=== PATIENT | male | born 1995 | race Caucasian/White ===

== ENCOUNTER 2016-04-02 05:44 | Inpatient (IN) | payer MEDICAID, OTHER ==
[~2016-04-02] VITALS: Ht 167.6 cm; Wt 54.4 kg
[2016-04-02] MEDS ORDERED: LORazepam 1 MG TAB PO PRN (09:15)
[2016-04-02] MEDS ORDERED: MAGNESIUM HYDROXIDE SUSP 30 ML CUP PO PRN (09:15)
[2016-04-02] MEDS ORDERED: ALUMINUM/MAGNESIUM/SIMETH 30 ML CUP PO PRN (09:15)
[2016-04-02] MEDS ORDERED: ACETAMINOPHEN 325 MG TAB PO PRN (09:15)
[2016-04-02] MEDS ORDERED: LORazepam 2 MG/ML VIAL IM PRN (09:15)
[2016-04-02 09:56] VITALS: BP 127/84; PULSE 91; RESP 20; TEMP 97.7; O2SAT 99
--- NOTE | 2016-04-02 10:34 | PD.CONS ---
HPI Service [facility] Consult Requested By Psychiatry team Reason for Consult Medical management leukocytosis WBC 22.4 Primary Care Physician Unknown Diagnoses: History of Present Illness Patient is a 20 year old white male who was transferred into the hospital from [facility] for suicidal ideation. Patient cut his left wrist and was sutured at [facility] prior to transfer. He is now admitted to medical psychiatry unit for further evaluation. Consulted for leukocytosis WBC 22.1 from labs drawn at [facility]. Patient seen today. States is doing well. Denies SI/HI. States this is the second and time in a long while that he attempted to hurt himself. 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 No other medical history or surgical history. Denies pain and discomfort. Denies SOB/ dyspnea. Denies chest pain, palpitations, headaches, dizziness. Denies fevers, chills, n/v/d. Denies dysuria, hematuria. Review of Systems Other Negative except for what is noted on history of present illness. Past Family Social History Allergies: Coded Allergies: No Known Allergies (Unverified , 04/02/16) Past Medical History ? hypertension - has not seen any primary care provider Past Surgical History None Reported Medications None Active Ordered Medications Current Medications Medications (Trade) Dose Ordered Sig/Venu Route Start Time Stop Time Status Last Admin (Ativan) 1 mg Q6H PRN PO 04/02/16 09:15 (Ativan Inj) 1 mg Q6H PRN IM 04/02/16 09:15 (Tylenol) 650 mg Q4H PRN PO 04/02/16 09:15 (Milk Of Magnesia Liq) 30 ml DAILY PRN PO 04/02/16 09:15 (Mag-Al Plus Susp Liq) 30 ml Q6H PRN PO 04/02/16 09:15 (Habitrol 14 Mg Patch.24 Hr) 1 patch DAILY TD 04/02/16 10:45 (Catapres) 0.1 mg Q6H PRN PO 04/02/16 10:45 Miscellaneous Information 1 HS TD 04/02/16 21:00 (Bactroban 2% Oint) 1 applic DAILY TOPICAL 04/02/16 10:45 Family History Heart disease, mother has hypertension Social History Reports alcohol use occasionally, one per weekwhiskey shots and beers, denies binge drinking Reports tobacco use, tobacco, smokes 5 cigarettes per day, also does vapor smoking Denies any illicit drug use Physical Exam Vital Signs Vital Signs Date Time Temp Pulse Resp B/P Pulse Ox O2 Delivery O2 Flow Rate FiO2 04/02/16 09:56 97.7 91 20 127/84 99 Physical Exam GENERAL: This is a thin-appearing, well-developed patient, in no apparent distress. SKIN: Warm and dry. Left wrist dressing CDI. HEAD: Atraumatic. Normocephalic. No temporal or scalp tenderness. EYES: Pupils equal round and reactive. Extraocular motions intact. No scleral icterus. No injection or drainage. ENT: Nose without bleeding. Throat without erythema. Uvula midline. Airway patent. NECK: Trachea midline. No JVD or lymphadenopathy. Supple, nontender, no meningeal signs. CARDIOVASCULAR: Regular rate and rhythm without murmurs, gallops, or rubs. RESPIRATORY: Fair air exchange. Breath sounds equal bilaterally. No wheezes, rales, or rhonchi. GASTROINTESTINAL: Abdomen soft, non-tender, nondistended. No hepato-splenomegaly , or palpable masses. No guarding. MUSCULOSKELETAL: Extremities without clubbing, cyanosis, or edema. No joint tenderness, effusion, or edema noted. No calf tenderness. Negative Homans sign bilaterally. NEUROLOGICAL: Awake and alert. Cranial nerves II through XII intact. Motor and sensory grossly within normal limits. Five out of 5 muscle strength in all muscle groups. Normal speech. Imaging Chest x-ray image reviewed and interpreted by me with no active cardiopulmonary disease Last Impressions Chest X-Ray 04/02/16 1030 Signed Impressions: Service Date/Time: April 10:36 - CONCLUSION: No acute cardiopulmonary disease. Rodrigo Aguirre MD Assessment and Plan Problem List: (1) Alcohol abuse with alcohol-induced mood disorder ICD Code: F10.14 Status: Acute (2) Microcytic anemia ICD Code: D50.9 Status: Acute (3) Leukocytosis ICD Code: D72.829 Status: Acute Assessment and Plan Patient is a 20-year-old male who came in as a transfer from [facility] secondary to self harm. He is now admitted to inpatient med psych unit for further evaluation. Consulted for medical management. Alcohol abuse with alcohol-induced mood disorder, depression - managed by psychiatry team Leukocytosis - WBC 22.1 from [facility] lab draw. They have medically cleared patient to be transferred to be evaluated for inpatient psychiatry unit, note stating unable to find source of infection. - Repeat CBC. WBC 14.6 - Chest x-ray showed no acute cardiopulmonary disease - Possibly reactive - stress related. Asymptomatic. Afebrile. Microcytic anemia - check iron panel, ferritin - Patient thinly appearing, poor appetite has not eaten for 2 days. Enc PO intake - Low iron panel including ferritin. Start iron pills. Check Hemoccult ?HTN - check EKG. - Monitor BP trend her now Thank you for this consultation. We will follow patient with you. Written by Bradley Rodríguez, acting as scribe for Dr. Hidalgo on 04/02/16 at 09:53. The documentation accurately reflects the work performed [id number] by me on at 14:16. Code Status Full code Discussed Condition With Patient, nursing, Bradley Roe Apr 02, 2016 10:34 Gabriel Hidalgo MD Apr 02, 2016 14:16
[2016-04-02] MEDS: NICOTINE 14 MG/24 HR PATCH TD SCH (10:45)
[2016-04-02] MEDS ORDERED: cloNIDine HCL 0.1 MG TAB PO PRN (10:45)
[2016-04-02] MEDS: MUPIROCIN 2% OINT 22 GM TUBE TOPICAL SCH (10:45)
--- NOTE | 2016-04-02 11:10 | RADRPT ---
EXAM DATE/TIME: 04/02/2016 10:36 [place] COMPARISON: No previous studies available for comparison. INDICATIONS : Short of breath. MEDICAL HISTORY : Chronic obstructive pulmonary disease. SURGICAL HISTORY : None. ENCOUNTER: Initial ACUITY: 1 day PAIN SCORE: 0/10 LOCATION: Bilateral chest FINDINGS: A single view of the chest demonstrates the lungs to be symmetrically aerated without evidence of mas s, infiltrate or effusion. The cardiomediastinal contours are unremarkable. Osseous structures are intact. CONCLUSION: No acute cardiopulmonary disease. Rodrigo Aguirre MD on April 02, 2016 at 11:08 Board Certified Radiologist. This report was verified electronically.
[2016-04-02 11:17] LABS: AUTOMATED NEUTROPHIL # 9.5 TH/MM3 (1.8-7.7); BASOPHIL # 0.1 TH/MM3 (0-0.2); BASOPHIL % 0.6 % (0.0-2.0); EOSINOPHIL # 0.2 TH/MM3 (0-0.4); EOSINOPHIL % 1.1 % (0.0-4.0); HEMATOCRIT 34.8 % (39.0-51.0); LYMPH % 24.2 % (9.0-44.0); LYMPHOCYTE # 3.5 TH/MM3 (1.0-4.8); MEAN CORPUSCULAR HEMOGLOBIN 23.7 PG (27.0-34.0); MEAN CORPUSCULAR HGB CONC 31.6 % (32.0-36.0); MONO % 8.7 % (0.0-8.0); NEUT % 65.4 % (16.0-70.0); PLATELET COUNT 234 TH/MM3 (150-450); RED BLOOD COUNT 4.64 MIL/MM3 (4.50-5.90); RED CELL DISTRIBUTION WIDTH 15.2 % (11.6-17.2); WHITE BLOOD COUNT 14.6 TH/MM3 (4.0-11.0)
[2016-04-02 11:19] LABS: HEMO FLAGS AUTO DIFF
[2016-04-02 11:47] LABS: ALKALINE PHOSPHATASE 59 U/L (45-117); ALT (GPT) 22 U/L (12-78); ANION GAP 9 MEQ/L (5-15); AST (GOT) 15 U/L (15-37); BICARBONATE 27.1 MEQ/L (21.0-32.0); BLOOD UREA NITROGEN 10 MG/DL (7-18); CHLORIDE 104 MEQ/L (98-107); FERRITIN 4 NG/ML (26-388); GLOMERULAR FILTRATION RATE 102 ML/MIN (>89); POTASSIUM 4.8 MEQ/L (3.5-5.1); SODIUM (NA) 140 MEQ/L (136-145); TOTAL BILIRUBIN ADULT 0.2 MG/DL (0.2-1.0); TRANSFERRIN IRON PROFILE 311 MG/DL (200-360)
[2016-04-02 11:58] LABS: TARGET CELLS 1+ (NORMAL)
[2016-04-02 11:59] LABS: SCAN/DIFF AUTO DIFF CONFIRMED
--- NOTE | 2016-04-02 12:27 | HHI.HP ---
Provisional Diagnosis Admission Date Apr 02, 2016 at 08:16 [place] I. Alcohol-induced mood disorder vs adjustment disorder with depressed mood [place] II. Deferred [place] III. None [place] IV. Marital conflicts [place] V. 50 Certification of Person's Competence To Provide Express and Informed Consent I have personally examined Uri Yu , a person being served at [facility] on, Apr 02, 2016 12:14. Express and informed consent means consent voluntarily given in writing, by a competent person, after sufficient explanation and disclosure of the subject matter involved to enable the person to make a knowing and willful decision without any element of force, fraud, deceit, duress, or other form of constraint or coercion. This person is 18 years of age or older, is not now known to be incompetent to consent to treatment with a guardian advocate, and does not have a health care surrogate or proxy currently making medical treatment decisions. I have found this person to be one of the following: [X] Competent to provide express and informed consent, as defined above, for voluntary admission to this facility and is competent to provide express and informed consent for treatment. He/she has the consistent capacity to make well reasoned, willful, and knowing decisions concerning his or her medical or mental health treatment. The person fully and consistently understands the purpose of the admission for examination/placement and is fully capable of personally exercising all rights assured under [place] Incompetent to provide express and informed consent to voluntary admission, and this is incompetent to provide express and informed consent to treatment. The person must be transferred to involuntary status and a petition for a guardian advocate filed with the Circuit Court. [] Refusing to provide express and informed consent to voluntary admission but is competent to provide express and informed consent for treatment. The person must be discharged or transferred to involuntary status. Form shall be completed within 24 hours of a person's arrival at the receiving facility and filed in the clinical record of each person: 1. Admitted on a voluntary basis 2. Permitted to provide express and informed consent to his/her own treatment 3. Allowed to transfer from involuntary to voluntary status 4. Prior to permitting a person to consent to his or her own treatment after having been previously found incompetent to consent to treatment. History of Present Illness Capacity: Has Capacity HPI Th patient is a 20 year-old man, domiciled with his parents, but , employed, without any previous psychiatric history, no previous psychiatric hospitalizations, no previous suicide attempts, but history of self cutting behavior without SI, who was transferred into the hospital from [facility] after a suicidal gesture by cutting his left wrist in the context of acute alcohol intoxication. Patient was sutured at [facility] prior to transfer. On psychiatric evaluation today the patient was found calm and cooperative, he was seen alone nurse in charge Toño, patient states that yesterday he had an argument with his , from whom he is right now , she is of another man, he became intoxicated with alcohol, he took about 8 beers, which is in usual him, and in the context of intoxication and frustration he went into his car and cut himself with his pocket knife "not to kill myself, but to release distress and anxiety". He says that he has done something very similar once in the past, about 6-7 years old after an argument with girlfriend, but he says that he doesn't usually do that. Patient is states that being intoxicated with alcohol had a big role "I was not thinking right". At this moment denies depressive symptoms, he denies hopelessness, he denies helplessness, he denies anhedonia, he denies suicidal ideation. He denies visual and auditory hallucinations. Patient is fully oriented 3. Since he arrived in the unit he has been talkative, easy to deal with, no agitation or aggressive behavior observed. He denies the use of illicit drugs, reports alcohol just occasionally, about 2 or 3 times per month, no more than 3- 4 beers. Review of Systems Constitutional: DENIES: Diaphoretic episodes, Fatigue, Fever, Weight gain, Weight loss, Chills, Dizziness, Change in appetite, Night Sweats Endocrine: DENIES: Heat/cold intolerance, Polydipsia, Polyuria, Polyphagia Eyes: DENIES: Blurred vision, Diplopia, Eye inflammation, Eye pain, Vision loss , Photosensitivity, Double Vision Ears, nose, mouth, throat: DENIES: Tinnitus, Hearing loss, Vertigo, Nasal discharge, Oral lesions, Throat pain, Hoarseness, Ear Pain, Running Nose, Epistaxis, Sinus Pain, Toothache, Odynophagia Respiratory: DENIES: Apneas, Cough, Snoring, Wheezing, Hemoptysis, Sputum production, Shortness of breath Cardiovascular: DENIES: Chest pain, Palpitations, Syncope, Dyspnea on Exertion , PND, Lower Extremity Edema, Orthopnea, Claudication Genitourinary: DENIES: Sexual dysfunction, Urinary frequency, Urinary incontinence, Urgency, Hematuria, Dysuria, Nocturia, Penile Discharge, Testicular Pain, Testicular Swelling Musculoskeletal: DENIES: Joint pain, Muscle aches, Stiffness, Joint Swelling, Back pain, Neck pain Hematologic/lymphatic: DENIES: Bruising, Lymphadenopathy Neurologic: DENIES: Abnormal gait, Headache, Localized weakness, Paresthesias, Seizures, Speech Problems, Tremor, Poor Balance Psychiatric: DENIES: Anxiety, Confusion, Mood changes, Depression, Hallucinations, Agitation, Suicidal Ideation, Homicidal Ideation, Delusions Past Psych History Psychological trauma history He denies Violence risk - others (6 mos) None Violence risk - self (6 mos) Increased Past Family Social History Coded Allergies: No Known Allergies (Unverified , 04/02/16) Current Medications Medications (Trade) Dose Ordered Sig/Venu Route Start Time Stop Time Status Last Admin (Ativan) 1 mg Q6H PRN PO 04/02/16 09:15 (Ativan Inj) 1 mg Q6H PRN IM 04/02/16 09:15 (Tylenol) 650 mg Q4H PRN PO 04/02/16 09:15 (Milk Of Magnesia Liq) 30 ml DAILY PRN PO 04/02/16 09:15 (Mag-Al Plus Susp Liq) 30 ml Q6H PRN PO 04/02/16 09:15 (Habitrol 14 Mg Patch.24 Hr) 1 patch DAILY TD 04/02/16 10:45 (Catapres) 0.1 mg Q6H PRN PO 04/02/16 10:45 Miscellaneous Information 1 HS TD 04/02/16 21:00 (Bactroban 2% Oint) 1 applic DAILY TOPICAL 04/02/16 10:45 Family History He denies Social History Patient was born and raised in [facility], he is , but , he is currently living with his father and mother, he works in a halfway, his highest level of education is a GED. Physical Exam Vital Signs Vital Signs Date Time Temp Pulse Resp B/P Pulse Ox O2 Delivery O2 Flow Rate FiO2 04/02/16 09:56 97.7 91 20 127/84 99 Mental Status Examination Appearance Very skinny man, he looks younger than his stated age, good hygiene, [facility], he is calm and cooperative Speech: Unremarkable Orientation: x3 Memory: Unremarkable Thought Process: Logical Thought Content: Unremarkable Hallucination Type: None Suicidal Ideation: No Previous Suicide Attempts: No Homicidal Ideation: No Previous Homicide Attempts: No Insight: Good Affect: Good Mood: Appropriate Motor Activity: Normal gait Assessment & Plan Problem List: (1) Alcohol abuse with alcohol-induced mood disorder Assessment & Plan: On psychiatric evaluation today the patient is calm and cooperative, logical, coherent, relevant, denies depressive symptoms, denies suicidal or homicidal ideation. Denies visual and auditory hallucinations. No agitation, aggressive behavior, mood or behavioral dysregulation observed or reported. Apparently reason suicidal gesture by cutting his left wrist after argument with ex seems to be secondary to stress and alcohol intoxication, and was used by the patient as a coping mechanism and no with suicidal intention , however more collateral information, longitudinal observation and a full psychosocial assessment is necessary to determine whether if patient is to continue inpatient hospitalization or chemical discharge back to his parents house. He will be kept Under hospitalization for safety and observation. We' ll order trazodone 50 mg at bedtime to help with sleep and also mood, social work intervention to help with collateral information, coordination of safe discharge and psychotherapy. Extensive motivation, psychoeducation and support provided. ICD Code: F10.14 Assessment & Plan Estimated LOS: Sundeep Dunlap MD Apr 02, 2016 12:27
[2016-04-02] MEDS ORDERED: ASPI81CH CHEW (13:16)
[2016-04-02 19:00] VITALS: BP 110/52; PULSE 100; RESP 16; TEMP 97; O2SAT 99
[2016-04-02] MEDS ORDERED: traZODone HCL 50 MG TAB PO SCH (21:00)
[2016-04-02] MEDS ORDERED: REMOVE OLD NICODERM (NICOTINE) PATCH TD SCH (21:00)
[2016-04-02 23:58] VITALS: BP 113/57; PULSE 80; RESP 16; TEMP 98; O2SAT 98
[2016-04-03 06:32] VITALS: BP 106/68; PULSE 106; RESP 15; TEMP 98.4; O2SAT 99
[2016-04-03] MEDS ORDERED: FERROUS SULFATE 325 MG (65 MG ELEMENTAL IRON) TAB PO SCH (09:00)
[2016-04-03] MEDS: MUPIROCIN 2% OINT 22 GM TUBE TOPICAL SCH (09:00)
[2016-04-03] MEDS: NICOTINE 14 MG/24 HR PATCH TD SCH (09:03)
--- NOTE | 2016-04-03 11:29 | HHI.DS ---
Psychiatry Discharge Summary Inpatient Psychiatric care?: Yes Advance Directive: No Reason Not Provided: Education Mental Health AdvanceDirective: No Health Care Proxy: No Admission Admission Date Apr 02, 2016 at 08:16 Admission Diagnosis: (1) Alcohol abuse with alcohol-induced mood disorder ICD Code: F10.14 Brief History Th patient is a 20 year-old man, domiciled with his parents, but , employed, without any previous psychiatric history, no previous psychiatric hospitalizations, no previous suicide attempts, but history of self cutting behavior without SI, who was transferred into the hospital from [facility] after a suicidal gesture by cutting his left wrist in the context of acute alcohol intoxication. Patient was sutured at [facility] prior to transfer. On psychiatric evaluation today the patient was found calm and cooperative, he was seen alone nurse in charge Toño, patient states that yesterday he had an argument with his , from whom he is right now , she is of another man, he became intoxicated with alcohol, he took about 8 beers, which is in usual him, and in the context of intoxication and frustration he went into his car and cut himself with his pocket knife "not to kill myself, but to release distress and anxiety". He says that he has done something very similar once in the past, about 6-7 years old after an argument with girlfriend, but he says that he doesn't usually do that. Patient is states that being intoxicated with alcohol had a big role "I was not thinking right". At this moment denies depressive symptoms, he denies hopelessness, he denies helplessness, he denies anhedonia, he denies suicidal ideation. He denies visual and auditory hallucinations. Patient is fully oriented 3. Since he arrived in the unit he has been talkative, easy to deal with, no agitation or aggressive behavior observed. He denies the use of illicit drugs, reports alcohol just occasionally, about 2 or 3 times per month, no more than 3- 4 beers. Tobacco Use In Past 30 Days: No Tobacco Past 30 Days Alcohol Use: 2-4 Times Per Month Hospital Course Patient initially was admitted in the [facility] where he was transferred from an outside hospital due to symptomatology of depression in the context of acute alcohol intoxication and after self inflicting a superficial laceration in her left wrist the need sutures. Since patient arrived in the unit he was calm, cooperative, he explained that after the argument with ex- he took some beers, he was frustrated, and he cut himself without suicidal intentions, but to release stress. Since the beginning patient denied depressive symptoms, he denied anxiety, he denies yisel, he denied suicidal and homicidal ideation, he denied visual and auditory hallucinations. Patient was left in the unit for longitudinal observation, safety and to complete psychosocial assessment and collateral information. During the hospitalization patient was pleasant, no episodes of agitation, aggressive behavior were reported. Results Blood Pressure 106 / 68 Vital Signs Date Time Temp Pulse Resp B/P Pulse Ox O2 Delivery O2 Flow Rate FiO2 04/03/16 06:32 98.4 106 15 106/68 99 Laboratory Tests Test 04/02/16 10:55 White Blood Count 14.6 TH/MM3 (4.0-11.0) Hemoglobin 11.0 GM/DL (13.0-17.0) Hematocrit 34.8 % (39.0-51.0) Mean Corpuscular Volume 75.0 FL (80.0-100.0) Mean Corpuscular Hemoglobin 23.7 PG (27.0-34.0) Mean Corpuscular Hemoglobin 31.6 % Concent (32.0-36.0) Monocytes (%) (Auto) 8.7 % (0.0-8.0) Neutrophils # (Auto) 9.5 TH/MM3 (1.8-7.7) Monocytes # (Auto) 1.3 TH/MM3 (0-0.9) Target Cells 1+ (NORMAL) Iron Level 13 MCG/DL (65-175) Percent Iron Saturation 3.0 % (20-50) Ferritin 4 NG/ML (26-388) Summary of Procedures None Imaging Last Impressions Chest X-Ray 04/02/16 1030 Signed Impressions: Service Date/Time: April 10:36 - CONCLUSION: No acute cardiopulmonary disease. Rodrigo Aguirre MD Pending results at discharge: No Medications # of Antipsychotic meds at D/C: 0 Approp Antipsych med options 1 - Minimum of three failed multiple trials of monotherapy. 2 - Documented plan to taper to monotherapy due to previous use of multiple meds OR cross-taper in progress at D/C. 3 - Documentation of augmentation of Clozapine. 4 - Justification other than those listed in allowable values 1-3, document here : Discharge Discharge Date: Apr 03, 2016 Discharge Diagnosis: (1) Alcohol abuse with alcohol-induced mood disorder ICD Code: F10.14 Mental Status Exam at Disch Skinny man, good hygiene, age appearing, calm and cooperative, his his speecg is a spontaneous and fluent, his mood is erythemic, affect erythemic , thought processes logical coherent, thought content devoid of suicidal or homicidal ideation, also devoid of visual and auditory hallucinations, his insight impulse control and judgment are good, his cognition is intact. Pt Condition on Discharge: Stable Discharge Disposition: Discharge Home Discharge Instructions Diet Instructions: As Tolerated, No Restrictions Scheduled Appointment: Discharge Time > 30 minutes Discharge/Advance Care Plan Health Problems: (1) Alcohol abuse with alcohol-induced mood disorder Goals to promote your health * To prevent worsening of your condition and complications * To maintain your health at the optimal level Directions to meet your goals Take your medications as prescribed Follow your dietary instruction Follow activity as directed Keep your appointments as scheduled Take your immunizations and boosters as scheduled If your symptoms worsen call your PCP, if no PCP go to Urgent Care Center or Emergency Room For 21/09 questions related to your inpatient stay or results of tests pending at discharge, please contact Dr. Sundeep Barney at Smoking is Dangerous to Your Health. Avoid second hand smoking Sundeep Barney MD Apr 03, 2016 11:28
--- NOTE | 2016-04-03 13:41 | EKG ---
Date Performed: 04/02/2016 Time Performed: 15:25:18 PTAGE: 20 years EKG: Sinus rhythm WITH SINUS ARRHYTHMIA NORMAL ECG NO PREVIOUS TRACING DOCTOR: Zahida Desouza Interpretating Date/Time 04/03/2016 13:35:25
--- NOTE | 2016-04-03 13:52 | HHI.PR ---
Subjective Remarks Follow-up visit alcohol-induced mood disorder, alcohol abuse, leukocytosis, microcytic anemia. Patient seen today. States is doing well. No issues overnight. Denies pain and discomfort. Denies SOB/ dyspnea. Denies chestpain , palpitations, headaches, dizziness. Denies fevers, chills, n/v/d. Objective Vitals Vital Signs Date Time Temp Pulse Resp B/P Pulse Ox O2 Delivery O2 Flow Rate FiO2 04/03/16 06:32 98.4 106 15 106/68 99 04/02/16 23:58 98.0 80 16 113/57 98 04/02/16 19:00 97.0 100 16 110/52 99 I/O 04/02/16 04/02/16 04/02/16 04/03/16 04/03/16 04/03/16 07:00 15:00 23:00 07:00 15:00 23:00 Intake Total 240 ml 500 ml 500 ml 360 ml Balance 240 ml 500 ml 500 ml 360 ml Intake Oral 240 ml 500 ml 500 ml 360 ml # Voids 3 2 # Bowel Movements 0 0 Result Diagram: 04/02/16 1055 04/02/16 1055 Objective Remarks GENERAL: This is a thinly appearing, well-developed patient, in no apparent distress. SKIN: Left wrist laceration approximately 1 inch. Suture intact. No erythema, no edema, no drainage noted. HEENT: Normocephalic. Pupils equal round and reactive. Nose without bleeding. Airway patent. NECK: Trachea midline. No JVD. Supple. CARDIOVASCULAR: Regular rate and rhythm without murmurs, gallops, or rubs. RESPIRATORY: Clear to auscultation. Breath sounds equal bilaterally. No wheezes , rales, or rhonchi. GASTROINTESTINAL: Abdomen soft, non-tender, nondistended. Bowel Sounds normoactive x4. MUSCULOSKELETAL: Extremities without clubbing, cyanosis, or edema. NEUROLOGICAL: Awake and alert. Oriented x 3. No focal neuro deficit. WALL. Normal speech. A/P Problem List: (1) Alcohol abuse with alcohol-induced mood disorder ICD Code: F10.14 Status: Acute (2) Microcytic anemia ICD Code: D50.9 Status: Acute (3) Leukocytosis ICD Code: D72.829 Status: Acute Assessment and Plan Patient is a 20-year-old male who came in as a transfer from [facility] secondary to self harm. He is now admitted to inpatient med psych unit for further evaluation. Consulted for medical management. Alcohol abuse with alcohol-induced mood disorder, depression - managed by psychiatry team Leukocytosis - WBC 22.1 from [facility] lab draw. They have medically cleared patient to be transferred to be evaluated for inpatient psychiatry unit, note stating unable to find source of infection. - Repeat CBC. WBC 14.6 - Chest x-ray showed no acute cardiopulmonary disease - Possibly reactive - stress related. Asymptomatic. Afebrile. Microcytic anemia - check iron panel, ferritin - Patient thinly appearing, poor appetite has not eaten for 2 days. Enc PO intake - Low iron panel including ferritin. Start iron pills. Check Hemoccult - Discussed with patient lab results and use of iron pills. Reports he hasn' t been eating well for the past few months. Weight loss about 10 pounds. States he is now eating better. ?HTN - check EKG. - Monitor BP trend her now Thank you for this consultation. We will follow patient with you. Written by Bradley Rodríguez, acting as scribe for Dr. Hidalgo on 04/02/16 at 09:53. Bradley Wong Apr 03, 2016 13:52 Gabriel Hidalgo MD Apr 03, 2016 17:02
--- NOTE | 2016-04-03 13:59 | HHI.PR ---
Subjective Remarks Follow-up visit leukocytosis, microcytic anemia. Patient seen today. States he is doing well. Denies pain and discomfort. Denies SOB/ dyspnea. Denies chestpain, palpitations, headaches, dizziness. Denies fevers, chills, n/v/d. Objective Vitals Vital Signs Date Time Temp Pulse Resp B/P Pulse Ox O2 Delivery O2 Flow Rate FiO2 04/03/16 06:32 98.4 106 15 106/68 99 04/02/16 23:58 98.0 80 16 113/57 98 04/02/16 19:00 97.0 100 16 110/52 99 I/O 04/02/16 04/02/16 04/02/16 04/03/16 04/03/16 04/03/16 07:00 15:00 23:00 07:00 15:00 23:00 Intake Total 240 ml 500 ml 500 ml 360 ml Balance 240 ml 500 ml 500 ml 360 ml Intake Oral 240 ml 500 ml 500 ml 360 ml # Voids 3 2 # Bowel Movements 0 0 Result Diagram: 04/02/16 1055 04/02/16 1055 Imaging Last Impressions Chest X-Ray 04/02/16 1030 Signed Impressions: Service Date/Time: April 10:36 - CONCLUSION: No acute cardiopulmonary disease. Rodrigo Aguirre MD Objective Remarks GENERAL: This is a thinly appearing, well-developed patient, in no apparent distress. SKIN: Left wrist laceration approximately 1 inch. Suture intact. No erythema, no edema, no drainage noted. HEENT: Normocephalic. Pupils equal round and reactive. Nose without bleeding. Airway patent. NECK: Trachea midline. No JVD. Supple. CARDIOVASCULAR: Regular rate and rhythm without murmurs, gallops, or rubs. RESPIRATORY: Clear to auscultation. Breath sounds equal bilaterally. No wheezes , rales, or rhonchi. GASTROINTESTINAL: Abdomen soft, non-tender, nondistended. Bowel Sounds normoactive x4. MUSCULOSKELETAL: Extremities without clubbing, cyanosis, or edema. NEUROLOGICAL: Awake and alert. Oriented x 3. No focal neuro deficit. WALL. Normal speech. A/P Problem List: (1) Alcohol abuse with alcohol-induced mood disorder ICD Code: F10.14 Status: Acute (2) Microcytic anemia ICD Code: D50.9 Status: Acute (3) Leukocytosis ICD Code: D72.829 Status: Acute Assessment and Plan Patient is a 20-year-old male who came in as a transfer from [facility] secondary to self harm. He is now admitted to inpatient med psych unit for further evaluation. Consulted for medical management. Alcohol abuse with alcohol-induced mood disorder, depression - managed by psychiatry team Leukocytosis - WBC 22.1 from [facility] lab draw. They have medically cleared patient to be transferred to be evaluated for inpatient psychiatry unit, note stating unable to find source of infection. - Repeat CBC. WBC 14.6 - Chest x-ray showed no acute cardiopulmonary disease - Possibly reactive - stress related. Asymptomatic. Afebrile. Microcytic anemia - check iron panel, ferritin - Patient thinly appearing, poor appetite has not eaten for 2 days. Enc PO intake - Low iron panel including ferritin. Start iron pills. Check Hemoccult - Discussed with patient lab results and use of iron pills. Reports he hasn' t been eating well for the past few months. Weight loss about 10 pounds. States he is now eating better. Needs outpatient follow-up ?HTN - EKG interpreted by me NSR without any abnormalities - Monitor BP trend her now Written by Bradley Rodríguez, acting as scribe for Dr. Hidalgo on 04/03/16 at 09:40. The documentation accurately reflects the work performed [id number] by me on at 17:04. Bradley Wong Apr 03, 2016 13:59 Gabriel Hidalgo MD Apr 03, 2016 17:04
== END 2016-04-03 14:57 | disposition home or self-care (01) | DRG 897 ==
LOC: H4EA 08:16
PROVIDERS: ADMIT Psychiatry & Neurology Psychiatry; ATTEND Psychiatry & Neurology Psychiatry
DX: F10.14 Alcohol abuse with alcohol-induced mood disorder (principal); R45.851 Suicidal ideations; F32.9 Major depressive disorder, single episode, unspecified; D50.9 Iron deficiency anemia, unspecified
CPT/HCPCS: 71010; 80053; 82728; 83540; 83550; 84443; 85025; 93005